=== PATIENT | female | born 1940 | race Caucasian/White ===

== ENCOUNTER 2016-12-12 07:19 | Day surgery (SDC) | payer MEDICARE, BC ==
[2016-12-12] MEDS ORDERED: Dextrose 5%-Lactated Ringers 1,000 ML IV SCH (08:00)
[2016-12-12] MEDS ORDERED: Propofol 200 MG/20 ML SDV ONE (08:17)
[2016-12-12] MEDS ORDERED: Midazolam 1 MG/ML 2 ML SDV ONE (08:17)
[2016-12-12] MEDS ORDERED: fentaNYL 100 MCG/2 ML SDV ONE (08:17)
[2016-12-12] MEDS ORDERED: Ondansetron 4 MG/2 ML SDV IVPUSH ONE (10:16)
[2016-12-12 12:36] VITALS: BP 120/68
--- NOTE | 2016-12-21 13:07 | OR ---
DATE OF PROCEDURE: 12/12/2016 PREOPERATIVE DIAGNOSIS: Indication for screening colonoscopy. POSTOPERATIVE DIAGNOSIS: Left colonic diverticulosis. OPERATIVE PROCEDURE: Flexible colonoscopy. ANESTHESIA: IV sedation. INDICATION FOR PROCEDURE: This is a 76-year-old female presenting with a history of breast cancer and an indication for screening colonoscopy. Plan is to proceed with a colonoscopy with biopsies and/or polypectomy as indicated. Potential risks including bleeding and perforation were discussed, and the patient wishes to proceed. DETAILS OF PROCEDURE: The patient was taken to the operating room and placed in a left lateral decubitus position. IV sedation was administered, after which the initial digital rectal exam was performed and was unremarkable. Colonoscope was then passed into the rectum with retroflexion revealing uncomplicated hemorrhoidal columns. The scope was eventually passed to the cecum. The prep was fairly good with there only being a small amount of liquid stool present. To that level, the patient was noted to have some completed left colonic diverticulosis. Otherwise, no areas of colitis or polyps or other signs of neoplasia. The scope was then withdrawn. The above findings were reconfirmed, and the procedure was then concluded. The patient was taken to the recovery room in satisfactory condition. Recommendation would be to repeat the colonoscopy in 5 years if the patient's health at that time warrants continued surveillance. Aroldo Ellis MD /[id number]
== END 2016-12-12 12:40 | disposition home or self-care (01) ==
LOC: JP.SDS 07:19
PROVIDERS: ATTEND Surgery
DX: Z12.11 Encounter for screening for malignant neoplasm of colon (principal); K57.30 Diverticulosis of large intestine without perforation or abscess without bleeding; Z85.3 Personal history of malignant neoplasm of breast
CPT/HCPCS: G0121; J2250; J2405; J2704; J3010; J7042

== ENCOUNTER 2019-11-13 16:36 | Emergency (ER) | payer MEDICARE, BC ==
[2019-11-13] MEDS ORDERED: fentaNYL 100 MCG/2 ML SDV IM ONE (17:27)
[2019-11-13 18:42] VITALS: BP 146/69; PULSE 54
--- NOTE | 2019-11-13 18:45 | EDM.PDOC ---
ED HPI GENERAL MEDICAL PROBLEM - General Chief Complaint: Back Pain or Injury Stated Complaint: BACK PAIN WAS WORKING IN THE YARD Time Seen by Provider: 11/13/19 17:05 Source of Information: Reports: Patient, Family History Limitations: Reports: No Limitations - History of Present Illness INITIAL COMMENTS - FREE TEXT/NARRATIVE: 79-year-old female with acute low back pain. She has chronic intermittent low back discomfort, but this morning she was out in the yard bending over and picking up sticks and now has developed a very intense lower back pain just to the right of the lumbar spine above the sacrum. There is no radiation of symptoms. There is no trauma. Onset: Sudden (Sharp increase in symptoms in the last 3 hours) Location: Reports: Back Quality: Reports: Burning, Stabbing Worsens with: Reports: Other (Difficulty standing), Movement Associated Symptoms: Reports: No Other Symptoms Lower Back Pain Score (Numeric/FACES): 5 - Related Data Allergies Allergy/AdvReac Type Severity Reaction Status Date / Time bee pollen Allergy Redness Verified 11/13/19 16:59 diagnostic x-ray Allergy Redness Uncoded 11/13/19 16:59 Home Meds: Home Meds Acetaminophen [Tylenol Extra Strength] 500 mg PO Q6HR PRN 12/09/16 [History] Naproxen Sodium 220 mg PO ASDIRECTED PRN 12/09/16 [History] Cyanocobalamin (Vitamin B-12) [Vitamin B12] 25,000 mcg PO DAILY 11/13/19 [ History] Donepezil HCl 10 mg PO DAILY 11/13/19 [History] Escitalopram [Lexapro] 5 mg PO DAILY 11/13/19 [History] Past Medical History Cardiovascular History: Reports: High Cholesterol Gastrointestinal History: Reports: GERD 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: , Prolapsed 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 Musculoskeletal History: Reports: Osteoarthritis Neurological History: Reports: Alzheimers Disease Psychiatric History: Reports: Dementia Oncologic (Cancer) History: Reports: Breast - Infectious Disease History Infectious Disease History: Reports: Chicken Pox, Mumps - Past Surgical History GI Surgical History: Reports: Colonoscopy Female Surgical History: Reports: Breast Biopsy, Hysterectomy, Salpingo- Oophorectomy, Other (See Below) Other Female Surgeries/Procedures: lumpectomy left breast for ca Musculoskeletal Surgical History: Reports: Other (See Below) Other Musculoskeletal Surgeries/Procedures:: bilat. foot surg with plates Oncologic Surgical History: Reports: Lumpectomy Other Oncologic Surgeries/Procedures: left Social & Family History - Family History Family Medical History: Noncontributory - Tobacco Use Smoking Status *Q: Never Smoker - Caffeine Use Caffeine Use: Reports: Coffee - Recreational Drug Use Recreational Drug Use: No ED ROS GENERAL - Review of Systems Review Of Systems: See Below Constitutional: Denies: Fever, Chills Respiratory: Denies: Shortness of Breath Cardiovascular: Denies: Chest Pain GI/Abdominal: Denies: Abdominal Pain, Nausea, Vomiting Skin: Denies: Rash Neurological: Denies: Paresthesia ED EXAM,LOWER BACK PAIN/INJURY - Physical Exam Exam: See Below Exam Limited By: No Limitations General Appearance: Alert, Mild Distress (Very uncomfortable initially) Head: Atraumatic Neck: Supple, Non-Tender Respiratory/Chest: No Respiratory Distress, Lungs Clear Cardiovascular: Regular Rate, Rhythm Back Exam: Other (Exquisitely tender to palpation over L4 and L5 especially just to the right of the vertebral bodies) Extremities: Normal Inspection, Other (Right hip and knee can be extended and flexed including internal and external rotation without any radiculopathy) Neurological: Alert, No Motor/Sensory Deficits, Oriented x 3. No: Straight Leg Raise (L), Straight Leg Raise (R) Course - Vital Signs Last Recorded V/S: Last Vital Signs Temp 97.6 F 11/13/19 16:59 Pulse 54 L 11/13/19 18:41 Resp 18 11/13/19 18:41 BP 146/69 H 11/13/19 18:41 Pulse Ox 97 11/13/19 18:41 - Orders/Labs/Meds Meds: Medications Discontinued Medications Generic Name Dose Route Start Last Admin Trade Name Rikki PRN Reason Stop Dose Admin Fentanyl 75 mcg 11/13/19 17:27 11/13/19 17:34 Sublimaze IM 11/13/19 17:28 75 mcg ONETIME ONE Administration - Re-Assessments/Exams Free Text/Narrative Re-Assessment/Exam: 11/14/19 09:42 Patient was given 75 mcg of fentanyl and reexamined and 45 minutes. She was moving more freely, continued to have no radiculopathy and was able to stand and walk. She was discharged with 10 doses of Percocet to take along with 2 doses of Aleve twice daily and will recheck early next week if not improving satisfactorily. Departure - Departure Time of Disposition: 18:49 Disposition: Home, Self-Care 01 Clinical Impression: Acute low back pain Qualifiers: Back pain laterality: right Sciatica presence: without sciatica Qualified Code( s): M54.5 - Low back pain - Discharge Information Instructions: Acute Back Pain, Adult Referrals: Zackary Gomez MD [Primary Care Provider] - Forms: ED Department Discharge Care Plan Goals: Take 2 Aleve twice daily for the next 4 or 5 days, increase activity as tolerated, and use stronger pain medication as directed for extra pain control. Consider rechecking next week if not improving satisfactorily, or return sooner if worsening such as weakness or numbness in your leg, incontinence, or other concerns. Sepsis Event Note - Evaluation Sepsis Screening Result: No Definite Risk - Focused Exam Date Exam was Performed: 11/14/19 Time Exam was Performed: 09:40
== END 2019-11-13 18:49 | disposition home or self-care (01) ==
LOC: JP.ED 16:36
DX: M54.5 Low back pain (principal); Z91.030 Bee allergy status; G30.9 Alzheimer's disease, unspecified; F02.80 Dementia in other diseases classified elsewhere, unspecified severity, without behavioral disturbance, psychotic disturbance, mood disturbance, and anxiety
CPT/HCPCS: 96372; 99283; J3010

== ENCOUNTER 2021-07-15 14:48 | Emergency (ER) | payer MEDICARE, BC ==
[2021-07-15] MEDS ORDERED: Sodium Chloride 0.9% 1,000 ML IV STA (16:02)
[2021-07-15] MEDS ORDERED: Sodium Chloride 0.9% 10 ML Syringe FLUSH PRN (16:02)
--- NOTE | 2021-07-15 16:06 | EDM.PDOC ---
ED HPI GENERAL MEDICAL PROBLEM - General Chief Complaint: Gastrointestinal Problem Stated Complaint: MID STOMACH PAIN Time Seen by Provider: 07/15/21 15:58 Source of Information: Reports: Patient, Family, RN Notes Reviewed History Limitations: Reports: Physical Impairment - History of Present Illness INITIAL COMMENTS - FREE TEXT/NARRATIVE: 81-year-old female presents emergency department day complaint of abdominal pain, she does have a history of dementia so history is difficult to obtain from her is present very good historian states that she has had abdominal pain for couple weeks but it has gotten worse over the last couple days she denies passing gas she does have a history of a tumor in her low back I believe this is metastatic with the primary from breast however records are not available at this time. She states she is not passing gas has not had any abdominal surgeries Abdomen Pain Score (Numeric/FACES): 8 - Related Data Allergies Allergy/AdvReac Type Severity Reaction Status Date / Time bee pollen Allergy Intermediate Redness Verified 07/15/21 15:40 Iodinated Contrast Media Allergy Intermediate Redness Verified 07/15/21 16:16 Home Meds: Home Meds Acetaminophen [Tylenol Extra Strength] 500 mg PO Q6HR PRN 12/09/16 [History] Naproxen Sodium 220 mg PO ASDIRECTED PRN 12/09/16 [History] Past Medical History Cardiovascular History: Reports: High Cholesterol Gastrointestinal History: Reports: GERD 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: , Prolapsed Uterus Musculoskeletal History: Reports: Osteoarthritis Other Musculoskeletal History: lower back cancer Neurological History: Reports: Alzheimers Disease Psychiatric History: Reports: Dementia Oncologic (Cancer) History: Reports: Breast, Other (See Below) Other Oncologic History: back - Infectious Disease History Infectious Disease History: Reports: Chicken Pox, Mumps - Past Surgical History GI Surgical History: Reports: Colonoscopy Female Surgical History: Reports: Breast Biopsy, Hysterectomy, Salpingo- Oophorectomy, Other (See Below) Other Female Surgeries/Procedures: lumpectomy left breast for ca Musculoskeletal Surgical History: Reports: Other (See Below) Other Musculoskeletal Surgeries/Procedures:: bilat. foot surg with plates Oncologic Surgical History: Reports: Lumpectomy Other Oncologic Surgeries/Procedures: left Social & Family History - Family History Family Medical History: No Pertinent Family History - Tobacco Use Tobacco Use Status *Q: Never Tobacco User - Caffeine Use Caffeine Use: Reports: Coffee - Recreational Drug Use Recreational Drug Use: No ED ROS GENERAL - Review of Systems Review Of Systems: See Below Constitutional: Reports: No Symptoms Respiratory: Reports: No Symptoms Cardiovascular: Reports: No Symptoms GI/Abdominal: Reports: Abdominal Pain. Denies: Constipation, Diarrhea, Flatus, Nausea, Vomiting ED EXAM, GI/ABD - Physical Exam Exam: See Below Exam Limited By: Physical Impairment General Appearance: Alert, No Apparent Distress Respiratory/Chest: No Respiratory Distress, Lungs Clear, Normal Breath Sounds, No Accessory Muscle Use, Chest Non-Tender Cardiovascular: Regular Rate, Rhythm, No Murmur GI/Abdominal Exam: Soft, Distended, Tender (Epigastric region) Course - Vital Signs Last Recorded V/S: Last Vital Signs Temp 97.7 F 07/15/21 15:49 Pulse 70 07/15/21 17:16 Resp 16 07/15/21 15:49 BP 136/75 07/15/21 17:16 Pulse Ox 96 07/15/21 17:16 - Orders/Labs/Meds Orders: Active Orders 24 hr Category Date Time Status Peripheral IV Care [RC] . DIRECTED Care 07/15/21 16:03 Active Iopamidol [Isovue-300 (61%)] Med 07/15/21 16:09 Active 78 ml IV . DIRECTED PRN Sodium Chloride 0.9% [Normal Saline] 1,000 ml Med 07/15/21 16:02 Active IV .BOLUS Sodium Chloride 0.9% [Saline Flush] Med 07/15/21 16:02 Active 10 ml FLUSH ASDIRECTED PRN Peripheral IV Insertion Adult [OM.PC] Urgent Oth 07/15/21 16:02 Ordered Medication Orders Sodium Chloride (Normal Saline) 1,000 mls @ 500 mls/hr IV .BOLUS STA Stop: 07/15/21 18:01 Iopamidol (Iopamidol 612 Mg/Ml 100 Ml Bottle) 78 ml IV . DIRECTED PRN PRN Reason: RADIOLOGY EXAM Stop: 07/16/21 16:10 Last Admin: 07/15/21 16:53 Dose: 78 ml Documented by: STACMAG Sodium Chloride (Sodium Chloride 0.9% 10 Ml Syringe) 10 ml FLUSH ASDIRECTED PRN PRN Reason: Keep Vein Open Labs: Laboratory Tests 07/15/21 07/15/21 07/15/21 Range/Units 16:17 16:17 16:17 WBC 4.8 (4.5-11.0) K/uL RBC 3.91 (3.30-5.50) M/uL Hgb 12.4 (12.0-15.0) g/dL Hct 37.0 (36.0-48.0) % MCV 95 (80-98) fL MCH 32 H (27-31) pg MCHC 34 (32-36) % Plt Count 249 (150-400) K/uL Neut % (Auto) 54.2 (36-66) % Lymph % (Auto) 31.5 (24-44) % Gilmer % (Auto) 12.7 H (2-6) % Eos % (Auto) 1.0 L (2-4) % Baso % (Auto) 0.6 (0-1) % Sodium 141 (140-148) mmol/L Potassium 4.6 (3.6-5.2) mmol/L Chloride 103 (100-108) mmol/L Carbon Dioxide 29 (21-32) mmol/L Anion Gap 8.8 (5.0-14.0) mmol/L BUN 19 H (7-18) mg/dL Creatinine 1.0 (0.6-1.0) mg/dL Est Cr Clr Drug Dosing 36.83 mL/min Estimated GFR (MDRD) 53 L (>60) Glucose 89 (74-106) mg/dL Lactic Acid 0.8 (0.4-2.0) mmol/L Calcium 9.1 (8.5-10.1) mg/dL Total Bilirubin 0.7 (0.2-1.0) mg/dL AST 25 (15-37) U/L ALT 17 (12-78) U/L Alkaline Phosphatase 147 H (46-116) U/L Troponin I High Sens 8.6 (<=60.3) pg/mL Total Protein 6.7 (6.4-8.2) g/dL Albumin 3.3 L (3.4-5.0) g/dL Globulin 3.4 (2.3-3.5) g/dL Albumin/Globulin Ratio 1.0 L (1.2-2.2) Lipase 431 H (73-393) U/L Urine Color (YELLOW) Urine Appearance (CLEAR) Urine pH (5.0-8.0) Ur Specific [place] (1.008-1.030) Urine Protein (NEGATIVE) mg/dL Urine Glucose (UA) (NEGATIVE) mg/dL Urine Ketones (NEGATIVE) mg/dL Urine Occult Blood (NEGATIVE) Urine Nitrite (NEGATIVE) Urine Bilirubin (NEGATIVE) Urine Urobilinogen (0.2-1.0) EU/dL Ur Leukocyte Esterase (NEGATIVE) Urine RBC (0-5) Urine WBC (0-5) Ur Epithelial Cells Amorphous Sediment Urine Bacteria Urine Mucus 07/15/21 Range/Units 16:58 WBC (4.5-11.0) K/uL RBC (3.30-5.50) M/uL Hgb (12.0-15.0) g/dL Hct (36.0-48.0) % MCV (80-98) fL MCH (27-31) pg MCHC (32-36) % Plt Count (150-400) K/uL Neut % (Auto) (36-66) % Lymph % (Auto) (24-44) % Gilmer % (Auto) (2-6) % Eos % (Auto) (2-4) % Baso % (Auto) (0-1) % Sodium (140-148) mmol/L Potassium (3.6-5.2) mmol/L Chloride (100-108) mmol/L Carbon Dioxide (21-32) mmol/L Anion Gap (5.0-14.0) mmol/L BUN (7-18) mg/dL Creatinine (0.6-1.0) mg/dL Est Cr Clr Drug Dosing mL/min Estimated GFR (MDRD) (>60) Glucose (74-106) mg/dL Lactic Acid (0.4-2.0) mmol/L Calcium (8.5-10.1) mg/dL Total Bilirubin (0.2-1.0) mg/dL AST (15-37) U/L ALT (12-78) U/L Alkaline Phosphatase (46-116) U/L Troponin I High Sens (<=60.3) pg/mL Total Protein (6.4-8.2) g/dL Albumin (3.4-5.0) g/dL Globulin (2.3-3.5) g/dL Albumin/Globulin Ratio (1.2-2.2) Lipase (73-393) U/L Urine Color Yellow (YELLOW) Urine Appearance Clear (CLEAR) Urine pH 6.0 (5.0-8.0) Ur Specific [place] 1.020 (1.008-1.030) Urine Protein Negative (NEGATIVE) mg/dL Urine Glucose (UA) Negative (NEGATIVE) mg/dL Urine Ketones Negative (NEGATIVE) mg/dL Urine Occult Blood Negative (NEGATIVE) Urine Nitrite Negative (NEGATIVE) Urine Bilirubin Negative (NEGATIVE) Urine Urobilinogen 0.2 (0.2-1.0) EU/dL Ur Leukocyte Esterase Trace H (NEGATIVE) Urine RBC Not seen (0-5) Urine WBC 5-10 H (0-5) Ur Epithelial Cells Rare Amorphous Sediment Not seen Urine Bacteria Moderate Urine Mucus Not seen Meds: Medications Generic Name Dose Route Start Last Admin Trade Name Freq PRN Reason Stop Dose Admin Sodium Chloride 1,000 mls @ 500 mls/hr 07/15/21 16:02 Normal Saline IV 07/15/21 18:01 .BOLUS STA Iopamidol 78 ml 07/15/21 16:09 07/15/21 16:53 Iopamidol 612 Mg/Ml 100 Ml Bottle IV 07/16/21 16:10 78 ml . DIRECTED PRN Administration RADIOLOGY EXAM Sodium Chloride 10 ml 07/15/21 16:02 Sodium Chloride 0.9% 10 Ml Syringe FLUSH ASDIRECTED PRN Keep Vein Open Discontinued Medications Generic Name Dose Route Start Last Admin Trade Name Freq PRN Reason Stop Dose Admin Sodium Chloride 100 mls @ 3 mls/sec 07/15/21 16:15 07/15/21 16:53 Normal Saline IV 07/15/21 16:16 3 mls/sec ASDIRECTED YESY Administration Sodium Chloride 10 ml 07/15/21 16:09 07/15/21 16:53 Sodium Chloride 0.9% 10 Ml Sdv FLUSH 07/15/21 16:10 10 ml ONETIME ONE Administration Departure - Departure Time of Disposition: 17:44 Disposition: Home, Self-Care 01 Condition: Poor Clinical Impression: Metastatic bone cancer Breast cancer Qualifiers: Breast location: unspecified site of breast - Discharge Information Referrals: Zackary Gomez MD [Primary Care Provider] - Forms: ED Department Discharge Additional Instructions: Hospice will contact you to set up a consultation call return to the emergency department worsening of symptoms Sepsis Event Note (ED) - Evaluation Sepsis Screening Result: No Definite Risk - Focused Exam Vital Signs: Vital Signs Temp Pulse Resp BP Pulse Ox 07/15/21 17:16 70 136/75 96 07/15/21 16:50 63 150/81 H 07/15/21 15:49 97.7 F 63 16 140/76 96 07/15/21 15:18 97.7 F 63 16 154/80 H 98 - My Orders Last 24 Hours: My Active Orders 07/15/21 16:02 Sodium Chloride 0.9% [Normal Saline] 1,000 ml IV .BOLUS Sodium Chloride 0.9% [Saline Flush] 10 ml FLUSH ASDIRECTED PRN Peripheral IV Insertion Adult [OM.PC] Urgent 07/15/21 16:03 Peripheral IV Care [RC] . DIRECTED 07/15/21 16:09 Iopamidol [Isovue-300 (61%)] 78 ml IV . DIRECTED PRN - Assessment/Plan Last 24 Hours: My Active Orders 07/15/21 16:02 Sodium Chloride 0.9% [Normal Saline] 1,000 ml IV .BOLUS Sodium Chloride 0.9% [Saline Flush] 10 ml FLUSH ASDIRECTED PRN Peripheral IV Insertion Adult [OM.PC] Urgent 07/15/21 16:03 Peripheral IV Care [RC] . DIRECTED 07/15/21 16:09 Iopamidol [Isovue-300 (61%)] 78 ml IV . DIRECTED PRN Plan: Assessment Acuity = acute Site and laterality = breast cancer primary source with metastatic disease to the bone monitor acute Etiology = unknown Manifestations = none Location of injury = Home Lab values = CBC CMP urinalysis unremarkable CT scan describes multiple metastatic lesions Plan I did review CT scan results with the he agrees to go to hospice therefore I called discussed case hospice nurse solutions delivery consultant set up a consult they will contact him in the next couple days for consultation This note was dictated using [employer] voice recognition software please call with any questions on syntax or grammar.
[2021-07-15] MEDS ORDERED: Sodium Chloride 0.9% 10 ML SDV FLUSH ONE (16:09)
[2021-07-15] MEDS ORDERED: Iopamidol 612 MG/ML 100 ML Bottle IV PRN (16:09)
[2021-07-15] MEDS ORDERED: Sodium Chloride 0.9% 100 ML IV SCH (16:15)
[2021-07-15 17:17] VITALS: BP 136/75; PULSE 70
--- NOTE | 2021-07-15 17:27 | CRLCT ---
For Patients: As a result of the 21st Century Cures Act, medical imaging exams and procedure reports are released immediately into your electronic medical record. You may view this report before your referring provider. If you have questions, please contact your health care provider. INDICATION: Pain COMPARISON: None TECHNIQUE: CT examination of the abdomen and pelvis was performed following the uneventful intravenous administration of 78 cc of Isovue 370. Thin section axial images were obtained from the lung bases through the pubic symphysis. Oral contrast was not administered. Please note that all CT scans at this facility use dose modulation, iterative reconstruction, and/or weight-based dosing when appropriate to reduce radiation dose to as low as reasonably achievable. FINDINGS: LUNG BASES: The right lung base appears normal. A moderate sized effusion is noted on the left which appears to be at least partially loculated. There is associated left lung volume loss. The heart is enlarged. LIVER/BILIARY SYSTEM:The liver is normal in size. A few low-density nodules are noted near the false form ligament which are probably benign. No biliary ductal dilatation.The gallbladder is distended but otherwise unremarkable. ADRENALS: Normal KIDNEYS, URETERS and BLADDER:The kidneys are normal in size. There is a right renal cyst measuring about 6 centimeters. Extrarenal pelves bilaterally. The bladder is mildly distended diffusely. Mildly prominent ureters likely due to bladder distention SPLEEN:Normal appearance. PANCREAS: Appears normal. RETROPERITONEUM and MESENTERY: Atherosclerotic vascular calcifications. No adenopathy GASTROINTESTINAL SYSTEM: Moderate diffuse fecal retention. Significant diverticulosis but no definite evidence of diverticulitis. No definite acute GI findings PELVIS: Moderate free fluid. No obvious mass. OSSEOUS STRUCTURES and ABDOMINAL WALL: Mixed lytic and blastic bone disease involving every visible bone. This is probably due to breast carcinoma though there are other possibilities. There is vertebral plana configuration regarding the L2 vertebral body. This represents a near-complete collapse of height.There are no other currently visible fractures on this exam. OTHER: Moderate ascites IMPRESSION: 1. Diffuse bony metastatic disease. This is mixed lytic and blastic and probably represents metastatic breast carcinoma. The only visible fracture is in L2 vertebral body fracture in a vertebra plana configuration. 2. Moderate size left pleural effusion which is partially loculated. Associated atelectasis at the left base 3. Moderate ascites in the abdomen and pelvis. 4. Other incidental nonacute appearing findings as discussed above 5. I discussed this case with . Officer at 5:20 p.m. on July 15, [address] note that all CT scans at this facility use dose modulation, iterative reconstruction, and/or weight-based dosing when appropriate to reduce radiation dose to as low as reasonably achievable. Dictated by Aroldo Lamb MD @ 07/15/2021 5:25:43 PM (Electronically Signed)
== END 2021-07-15 18:05 | disposition home or self-care (01) ==
LOC: JP.ED 14:48
DX: C41.9 Malignant neoplasm of bone and articular cartilage, unspecified (principal); C79.81 Secondary malignant neoplasm of breast; Z91.030 Bee allergy status; Z91.041 Radiographic dye allergy status
CPT/HCPCS: 36415; 74177; 80053; 81001; 83605; 83690; 84484; 85025; 99284; Q9967